=== PATIENT | male | born 1975 | race Caucasian/White ===

== ENCOUNTER 2024-03-13 05:49 | Emergency (ER) | payer BC, SELFPAY ==
[2024-03-13 06:06] VITALS: BP 146/105; PULSE 111; RESP 20; TEMP 35.9; O2SAT 98
[2024-03-13 06:22] VITALS: BP 136/88; PULSE 98; RESP 18; TEMP 35.9; O2SAT 98
--- NOTE | 2024-03-13 06:30 | W.ED.GENAD ---
Discharge Plan Disposition Patient Disposition: Home Condition: Good Discharge Details Clinical Impression: Cellulitis, Chronic wound ED Provider: Sima Pinedo Home Meds and New Rx's Prescriptions: New sulfamethoxazole-trimethoprim [Bactrim DS] 800-160 mg tablet 1 tab PO Q12H Qty: 14 0RF cephalexin 500 mg capsule 500 mg PO QID Qty: 28 0RF Discharge Instructions Instructions: Cellulitis (Skin Infection), Adult ED, Wound Care ED Additional Instructions: Take cephalexin every 6 hours for the next 7 days. Take sulfamethoxazole-trimethoprim every 12 hours for the next 7 days. Call your primary care doctor today to schedule an appointment to be seen within the next 48 hours to followup on your visit here. Please also call your cycling instructor today to schedule an an appointment to followup on your heel ulcer. Return to the emergency department for new or worsening symptoms including fever, nausea, vomiting, lightheadedness, or if your symptoms have not improved within 48 hours. HPI General Mode of arrival: ambulatory. Date/Time Provider Initiated Documentation: 03/13/24 05:52. Limitations to Documentation: no limitations. Information obtained by: patient. HPI Narrative: 49yo M with hx of chronic LE wounds, prior MRSA infection, reported vascular disease, presenting for worsening left leg pain, warmth, and drainage. Has chronic wounds on this leg as well as a heel ulcer that occurred several months ago after stepping on a piece of glass and has never entirely gone away. He reports having xrays since then. This wound is no worse than usual. Sensation intact throughout left leg. Not swollen. Systemically well with no fevers, chills, nausea, or vomiting. Otherwise in his usual state of health. Related Data Home Medications ?Medication ?Instructions ?Recorded ?Confirmed cephalexin 500 mg capsule 500 mg PO QID #28 caps 03/13/24 sulfamethoxazole 800 1 tab PO Q12H #14 tabs 03/13/24 mg-trimethoprim 160 mg tablet (Bactrim DS) Previous Rx's ?Medication ?Instructions ?Recorded cephalexin 500 mg capsule 500 mg PO QID #28 caps 03/13/24 sulfamethoxazole 800 1 tab PO Q12H #14 tabs 03/13/24 mg-trimethoprim 160 mg tablet (Bactrim DS) Allergies Allergy/AdvReac Type Severity Reaction Status Date / Time povidone-iodine Allergy Severe Other (See Unverified 03/13/24 06:45 Comment) shellfish derived Allergy Severe Anaphylaxis Verified 03/13/24 06:45 General Stated Complaint: Cellulitis CAMERON: 3 Review of Systems Narrative: see HPI Exam Narrative Exam Narrative: General: Alert, well appearing, well nourished, in no acute distress. Head: Normocephalic, atraumatic. Left lateral chin with some excoriation. No abscess. Neck: Trachea midline, ?Neck supple. ENT: ?MMM.? No oropharygeal lesions or exudate. Cardiac: ?RRR, no murmurs appreciated Resp: No respiratory distress. CTAB. Abd: ?Soft, non-distended, nontender : ?No suprapubic tenderness. Extremities: ?No deformities.? No peripheral edema. Palpable DP pulses bilaterally. Sensation intact throughout BLE. ~4 second capillary refill bilateral LE digits. No LLE swelling. Warmth and erythema to left leg/casanova extending up to just distal to knee. No knee effusion or tenderness. Scattered chronic appearing wounds on LLE leg with some granulation tissue with serosanginiuos drainage, no lawson purulence. Ulcer to sole of left heel with no surrounding cellulitis, no drainage. Neurologic: GCS 15. ? Moves all extremities freely against gravity. Sensation to light intouch intact thorughout BLE. Course Vital Signs Vital signs: Vital Signs Temperature 35.9 C L 03/13/24 06:06 Pulse 111 H 03/13/24 06:06 Respiratory Rate 20 03/13/24 06:06 Blood Pressure 146/105 H 03/13/24 06:06 Pulse Oximetry 98 03/13/24 06:06 Temperature 35.9 C L 03/13/24 06:06 Temperature Source Temporal Artery Scan 03/13/24 06:06 Pulse 111 H 03/13/24 06:06 Respiratory Rate 20 03/13/24 06:06 Blood Pressure 146/105 H 03/13/24 06:06 Blood Pressure Position Sitting 03/13/24 06:06 Pulse Oximetry 98 03/13/24 06:06 Oxygen Delivery Method Room Air 03/13/24 06:06 Oxygen Flow Rate 0 03/13/24 06:06 Pain Level 4 03/13/24 06:06 Medical Decision Making 49yo M with hx of chronic LE wounds, prior MRSA infection, reported vascular disease, presenting for worsening left leg pain, warmth, and drainage. Tachycardiac on arrival after ambulating into triage from parking lot, vital signs otherwise reassuring. Afebrile here and at home, denies any systemic symptoms. Appears well on exam. BLE with palpable symmetric DP pulses, intact sensation, capillary refill ~ 4 seconds. LLE with chronic wounds to leg as well as ulcer to sole of heel of foot. Leg with cellulitis and some drainage from wounds, heel ulcer does not appear infected. He does report a history of PVD however cannot clarify further; given that he has a reassuring neurovascular exam and good DP pulses would not get vascular imaging/ALFREDO/etc at this time. Exam not suggestive of DVT. Will treat cellullitis with keflex and bactrim (not clear MRSA on exam but he does have a history of such). Repeat vital signs with HR improved to 80's without intervention. Given his normal vital signs and that he appears very well, not concerned for sepsis and would not get labs or blood cultures at this time. Advised to followup with PCP as well as podiatry; he states he is typically able to get in to see both his PCP and his cycling instructor relatively quickly. Discharged home; discharge instructions and return precautions were reviewed with zac who verbalized understanding. All questions were answered and he is in full agreement with the plan. Quality:SDOH Health Related Social Needs: No Data to Display PFSH All Active Problems (Updated 03/13/24 @ 06:54 by Sima Pinedo MD) Chronic wound (Acute) Cellulitis (Acute) Social History Smoking/Tobacco Use Status: Former Tobacco Use Smoking risk assessment performed?: Yes Alcohol Intake: former Drug use: Daily Substance use type: marijuana Details: denies any other drug use Housing: apartment Do you feel safe at home: Yes Do you feel safe in your relationship?: Yes
[2024-03-13] MEDS: Cephalexin 500 MG CAP PO (06:46)
[2024-03-13] MEDS: Sulfameth/Trimeth DS TAB 1 TAB PO (06:46)
--- NOTE | 2024-03-13 06:51 | W.PCEDHO ---
Registration Status: Primary Language: Preferred Language: ED Information & Data Chief Complaint Cellulitis 03/13/24 06:30 Triage Note pt comes to the ED states 03/13/24 06:06 that he has a rash and open wounds to his left leg. the pt states he stepped on a piece of glass months ago and a doctor could not remove it the pt also stated that he cannot remember the doctors name or any other (possible treatments) the pt states that the itchy rash on his face is due to my blood disease, Bartonella pts open wounds covered in slough and purulent drainage , decreased cap refill, leg red and hot to the touch Most Recent Vital Signs Temperature 35.9 C L 03/13/24 06:22 Temperature Source Temporal Artery Scan 03/13/24 06:22 Pulse 98 H 03/13/24 06:22 Respiratory Rate 18 03/13/24 06:22 Respiratory Effort Normal 03/13/24 06:22 Blood Pressure 136/88 03/13/24 06:22 Blood Pressure Position Sitting 03/13/24 06:22 Pulse Oximetry 98 03/13/24 06:22 Oxygen Delivery Method Room Air 03/13/24 06:22 Oxygen Flow Rate 0 03/13/24 06:06 Pain Level 5 03/13/24 06:22 Allergies povidone-iodine Allergy (Severe, Unverified 03/13/24 06:45) Other (See Comment) blisters shellfish derived Allergy (Severe, Verified 03/13/24 06:45) Anaphylaxis Intake and Output - 24 Hour Total 03/13/24 05:49 thru 03/13/24 06:06 Weight 90.718 kg Falls Risk Assessment History of Falls No History 03/13/24 06:22 Contributing Factors Impairments 03/13/24 06:22 Ambulatory Aids Uses ambulatory device 03/13/24 06:22 Tubes/Lines None 03/13/24 06:22 Gait Evaluation W/any additional score 03/13/24 06:22 Cognition No cognitive impairment 03/13/24 06:22 Fall Total Score 38 03/13/24 06:22 Level of Risk Moderate Risk 03/13/24 06:22 v v v v v v v v v Sending and/or Receiving Nurses: Please use comment section below to note any information pertinent to the patient hand-off not included above. Information / Comments: Report received from: Dharmesh Graham RN @ 0645 03/13/24
[2024-03-13 07:08] VITALS: PULSE 82; RESP 20; O2SAT 97
== END 2024-03-13 07:29 | disposition home or self-care (01) ==
LOC: ER 07:42
PROVIDERS: Emergency Provider Student in an Organized Health Care Education/Training Program
DX: L03.116 Cellulitis of left lower limb (principal); S81.802D Unspecified open wound, left lower leg, subsequent encounter; X58.XXXD Exposure to other specified factors, subsequent encounter
CPT/HCPCS: 99283; 99284

== ENCOUNTER 2024-11-03 06:14 | Emergency (ER) | payer BC, SELFPAY ==
[2024-11-03] VITALS (12 sets, daily range): BP systolic 172–192; BP diastolic 105–122; PULSE 69–98; RESP 18; TEMP 37.2; O2SAT 94–98
--- NOTE | 2024-11-03 05:39 | ED.GENADUL_ITS ---
Discharge Plan Disposition Patient Disposition: [facility] Condition: Good Discharge Details Clinical Impression: Pneumonia, Cough, Hypokalemia Primary Care Provider: Aisha,Local ED Provider: Sima Pinedo Home Meds and New Rx's Prescriptions: Continued doxycycline hyclate 100 mg capsule cefpodoxime 200 mg tablet 200 mg PO BID Rx Instructions: must administer with a meal/food Discharge Instructions Instructions: Pneumonia, Adult ED Additional Instructions: Continue taking your antibiotics for your leg; the same antibiotics will also cover your pneumonia. You will need to take them for at least another 5 days for the pneumonia- please continue taking the full prescription for your leg even though this is longer than 5 days. Call your primary care doctor in the morning to schedule an appointment to followup on your visit here; at that visit please discuss your blood pressure (which is high here in the emergency department), your anemia, and your potassium which is slightly low here today. Return to the emergency department for new or worsening symptoms including fev er, difficulty breathing, inability to keep down fludis, or if you have any other concerns. HPI General Mode of arrival: EMS . Date/Time Provider Initiated Documentation: 11/03/24 06:22 . Limitations to Documentation: no limitations . Information obtained by: patient and EMS . HPI Narrative: 49yo M with hx HTN, chronic LE wounds, reported vascular disease, presenting for cough for the past two days. Cough is productive of yellowish sputum. Feels generally unwell, nausea, malaise. No chest pain or shortness of breath. Not sure about fevers. Has chronic wounds his left leg, recently admitted to [facility] for cellulitis; grew MRSA and is currently being treated with antibiotics. Otherwise in his usual state of health. Related Data Home Medications ?Medication ?Instructions ?Recorded ?Confirmed cefpodoxime 200 mg tablet 200 mg PO BID 11/03/2411/03 doxycycline hyclate 100 mg capsule mg 11/03/24 Allergies Allergy/AdvReac Type Severity Reaction Status Date / Time povidone-iodine Allergy Severe Other (See Unverified 11/03/24 05:42 Comment) shellfish derived Allergy Severe Anaphylaxis Verified 11/03/24 05:42 General Stated Complaint: Cellulitis CAMERON: 3 Review of Systems Narrative: see HPI Exam Narrative Exam Narrative: General: Alert, well nourished, in no acute distress. Head: Normocephalic, atraumatic Neck: Trachea midline, ?Neck supple. ENT: ?MMM.? Cardiac: ?RRR, no murmurs appreciated Resp: No respiratory distress. CTAB. + cough Abd: ?Soft, non-distended, nontender Extremities: ?LLE: casanova, calf, foot with multiple chronic appearing wounds including ulcer to heel. Surrounding mild erythema. Scant serous drainage. +DP pulse Neurologic: GCS 15. ? Moves all extremities freely against gravity Course Vital Signs Vital signs: Vital Signs Temperature 37.2 C 11/03/24 05:35 Pulse 69 11/03/24 05:35 Respiratory Rate 18 11/03/24 05:35 Blood Pressure 181/116 H 11/03/24 05:35 Pulse Oximetry 96 11/03/24 05:35 Temperature 37.2 C 11/03/24 05:35 Temperature Source Oral 11/03/24 05:35 Pulse 69 11/03/24 05:35 Respiratory Rate 18 11/03/24 05:35 Blood Pressure 181/116 H 11/03/24 05:35 Pulse Oximetry 96 11/03/24 05:35 Oxygen Delivery Method Room Air 11/03/24 05:35 Oxygen Flow Rate 0 11/03/24 05:35 Pain Level 4 11/03/24 05:35 Medical Decision Making 49yo M with hx of HTN, chronic LE wounds, reported vascular disease, presenting for cough for the past two days. Cough is productive of yellowish sputum, also feels generally unwell, nausea, malaise. No CP or difficulty breathing. On cefpodoxime and doxycycline for LLE cellulitis. Hypertensive on arrival, vital signs otherwise reassuring. No respiratory distress on exam, clear lungs; does have productive cough. Not septic. LLE exam consistent with cellulitis with chronic wounds, currently appear be doing relatively well. Likely viral URI; will evaluate further with labs, viral swab, CXR. Not suggestive of pulmonary edema, acute coronary syndrome, or pulmonary embolism. Labs reviewed as below, CBC with leukocytosis to 14 (non-specific) and mild anemia Hg 11.6, CMP with mild hypokalemia at 3.3 (oral replacement given) and no other actionable abnormalities, Mg normal. Respiratory viral swab negative for covid, flu, RSV. EKG SR, no ST segment or T wave abnormalities to suggest occlusive [place], no significant [place] of hypokalemia. CXR independently reviewed; no focal pneumonia or pneumothorax on my view, radiology read with RLL concerning for possible pneumonia; patient is on cefpo and doxy which should provided adequate coverage- he states he has another 7 days left on his prescription which is also adequate. On reassessment he remains non-toxic appearing, hypertensive but vital signs otherwise reassuring. PO challenged and tolerated well. Would not initiate anti-hypertensives today here in the ED or treat urgently at this time- he was advised to followup with his PCP for this. Discharged; discharge instructions and return precautions were reviewed with patient who verbalized understanding. All questions were answered and he is in full agreement with the plan. Imaging Data Radiologic Study: Imaging: X-Ray Radiologist's impression: IMPRESSION: Right lower lobe airspace opacity, concern for pneumonia. Recommend follow to resolution Lab Data Lab results reviewed: Yes I reviewed the patient's lab results. Labs: Laboratory Tests Range/Units 11/03/24 05:50 WBC (4.4-10.8) 10^3/uL 14.46 H RBC (4.36-5.78) 10^6/uL 5.03 Hgb (13.5-17.5) g/dL 11.6 L Hct (40.0-50.0) % 37.9 L MCV (80-95) fL 75 L MCH (27.0-33.0) pg 23.1 L MCHC (32.0-36.0) % 30.6 L RDW (11.8-14.1) % 15.8 H Plt Count (130-400) 10^3/uL 363 MPV (8.0-11.0) fL 10.5 Immature Gran % % 0.5 Neutrophils % % 79.4 Lymphocytes % % 10.2 Monocytes % % 8.5 Eosinophils % % 1.0 Basophils % % 0.4 Nucleated RBC % (0.0-0.3) % 0.0 Absolute Neutrophils (1.2-6.7) 10^3/uL 11.48 H Absolute Lymphocytes (1.2-3.4) 10^3/uL 1.47 Absolute Monocytes (0.1-0.8) 10^3/uL 1.23 H Absolute Eosinophils (0.0-0.7) 10^3/uL 0.14 Absolute Basophils (0.0-0.2) 10^3/uL 0.06 Sodium (136-145) mmol/L 136 Potassium (3.5-5.1) mmol/L 3.3 L Chloride (98-107) mmol/L 97 L Carbon Dioxide (21.0-32.0) mmol/L 28.3 Anion Gap (3-11) mmol/L 10.7 BUN (7-18) mg/dL 11 Creatinine (0.70-1.30) mg/dL 0.8 Est GFR (CKD-EPI 2020) (mL/min/1.73m2) 109.17 Glucose (74-106) mg/dL 99 Calcium (8.5-10.1) mg/dL 9.1 Magnesium (1.8-2.4) mg/dL 1.8 Total Bilirubin (0.2-1.0) mg/dL 0.6 AST (15-37) U/L 13 L ALT (16-63) U/L 21 Alkaline Phosphatase (46-116) U/L 99 Total Protein (6.4-8.2) g/dL 8.7 H Albumin (3.4-5.0) g/dL 3.2 L PFSH All Active Problems (Updated 11/03/24 @ 06:47 by Sima Pinedo MD) Hypokalemia (Acute) Pneumonia (Acute) Cough (Acute) Social History Smoking/Tobacco Use Status: Former Tobacco Use Smoking risk assessment performed?: Yes Alcohol Intake: former Drug use: Daily Substance use type: marijuana Details: denies any other drug use Housing: apartment Do you feel safe at home: Yes Do you feel safe in your relationship?: Yes
[2024-11-03 05:56] LABS: Abs Immature Grans 0.07 10^3/uL (0.0-0.06); Absolute Basophil Count 0.06 10^3/uL (0.0-0.2); Absolute Lymphocyte Count 1.47 10^3/uL (1.2-3.4); Absolute Monocyte Count 1.23 10^3/uL (0.1-0.8); Absolute Neutrophil Count 11.48 10^3/uL (1.2-6.7); Basophils % 0.4 %; HCT 37.9 % (40.0-50.0); HGB 11.6 g/dL (13.5-17.5); Immature Grans % 0.5 %; Lymphocytes % 10.2 %; MCH 23.1 pg (27.0-33.0); MCHC 30.6 % (32.0-36.0); MCV 75 fL (80-95); MPV 10.5 fL (8.0-11.0); Monocytes % 8.5 %; Neutrophils % 79.4 %; Platelet Count 363 10^3/uL (130-400); RBC 5.03 10^6/uL (4.36-5.78); RDW 15.8 % (11.8-14.1); RDW-SD 42.5 fL; WBC 14.46 10^3/uL (4.4-10.8)
[2024-11-03 05:57] LABS: Absolute Eosinophil Count 0.14 10^3/uL (0.0-0.7)
[2024-11-03 06:12] LABS: ALT 21 U/L (16-63); AST 13 U/L (15-37); Albumin 3.2 g/dL (3.4-5.0); Alkaline Phosphatase 99 U/L (46-116); Anion Gap 10.7 mmol/L (3-11); BUN 11 mg/dL (7-18); Bilirubin, Total 0.6 mg/dL (0.2-1.0); CO2 28.3 mmol/L (21.0-32.0); CREATININE 0.8 mg/dL (0.70-1.30); Calcium 9.1 mg/dL (8.5-10.1); Chloride 97 mmol/L (98-107); Estimated GFR 109.17 (mL/min/1.73m2); Glucose 99 mg/dL (74-106); Magnesium 1.8 mg/dL (1.8-2.4); Potassium 3.3 mmol/L (3.5-5.1); Sodium 136 mmol/L (136-145); Total Protein 8.7 g/dL (6.4-8.2)
--- NOTE | 2024-11-03 06:13 | DI.RAD_ITS ---
Exam(s) XR CHEST 2V PA LATERAL EXAM: XR CHEST 2V PA LATERAL CLINICAL HISTORY: cough TECHNIQUE: 2D digital imaging was performed of the chest. Two images were obtained. PA and lateral views were obtained. COMPARISON: No exams were available for comparison FINDINGS: MEDIASTINUM: Normal. HEART: Normal. PULMONARY VASCULATURE: Normal. LUNGS: There is a linear infiltrate seen in the right lung base. The left lung is clear. PLEURAL SPACE: No pleural effusion or pneumothorax. BONE:Within normal limits for the patient's age. OTHER FINDINGS:Normal. IMPRESSION: 1. Linear right basilar infiltrate which may represent atelectasis or pneumonia. Please correlate clinically. 2. The preliminary [facility] report was reviewed. DATA REPOSITORY: RADIATION DOSE DELIVERED:
[2024-11-03] MEDS: Potassium Chloride 20 MEQ TABCR 40 MEQ PO (06:27)
[2024-11-03 06:31] LABS: COVID-19 PCR Negative (Negative); Influenza A PCR Negative (Negative); Influenza B PCR Negative (Negative); RSV PCR Negative (Negative)
--- NOTE | 2024-11-03 06:43 | DI.[facility]_ITS ---
PROCEDURE INFORMATION: Exam: XR Chest Exam date and time: 11/03/2024 6:04 AM Age: 49 years old Clinical indication: Cough TECHNIQUE: Imaging protocol: Radiologic exam of the chest. Views: 2 views. COMPARISON: No prior studies were available at the time of this dictation. FINDINGS: Lungs: Right lower lobe distribution hazy opacity concerning for airspace disease. lungs clear elsewhere. Pleural spaces: No pleural thickening. Heart/Mediastinum: Cardiac silhouette not enlarged. Bones/joints: Bones unremarkable. IMPRESSION: Right lower lobe airspace opacity, concern for pneumonia. Recommend follow to resolution. Dictated and Authenticated by: John Mcdonald MD. Orderin Shahida Gao MD
--- NOTE | 2024-11-03 06:45 | RT.EKG_ITS ---
APPROVED REPORT Exam: Resting ECG Reason for Exam: infection, pneumonia Patient Location: E HR:87 bpm ECG Measurements Heart Rate 87 AXIS OK 109 P 9 QRSd 90 QRS 30 QT 401 T 63 QTc 482 Conclusion Sinus rhythm...normal P axis, V-rate 60- [address] segment or T wave abnormalities to suggest occlusive MD
[2024-11-03 07:07] LABS: Source Nasopharynx
== END 2024-11-03 07:26 ==
LOC: ER 06:17
PROVIDERS: Emergency Provider Student in an Organized Health Care Education/Training Program
DX: J18.9 Pneumonia, unspecified organism (principal); E87.6 Hypokalemia; L03.116 Cellulitis of left lower limb; I10 Essential (primary) hypertension; Z79.899 Other long term (current) drug therapy
CPT/HCPCS: 36415; 80053; 87637; 93005; 96365; 96375; 99284; 99285; 71046; 83735; 85025; 93010